=== PATIENT | male | born 1995 | race Caucasian/White ===

== ENCOUNTER 2016-10-29 06:52 | Emergency (ER) | payer BC, OTHER ==
[~2016-10-29] VITALS: Ht 167.6 cm; Wt 56.8 kg
[2016-10-29] MEDS ORDERED: PENT500C PO (07:07)
--- NOTE | 2016-10-29 08:24 | REP ---
CT abdomen and pelvis without IV or oral contrast: Renal stone protocol. History: Dysuria, hematuria, right flank pain. The patient reports a history of ulcerative colitis. Prior appendectomy. Comparison CT study December 23, 2008. CT findings: Preliminary digital shading painter radiograph shows an unremarkable bowel gas pattern. The lung bases are clear. There is no evidence of pleural effusion or upper abdominal ascites. The liver and the spleen are normal in size and homogeneous in texture. The gallbladder is unremarkable. No pancreatic abnormality is seen. No adrenal lesion is observed on either side. No intrarenal calculus is seen. No hydronephrosis is noted. The right mid ureter is slightly prominent. Small and large bowel loops in the upper abdomen are unremarkable. There are surgical clips in the right lower quadrant post appendectomy. Prostate, seminal vesicles and urinary bladder are unremarkable. There is a 3 mm calcification in the right pelvis. This could conceivably be a right distal ureteral calculus. I am not able to trace the ureter due to general paucity of intra-abdominal and retroperitoneal fat and lack of hydronephrosis. No other abnormality. No abdominal wall defect is seen. No bony lesion is appreciated. Impression: Status post appendectomy clips right lower quadrant. Calcification in the right pelvis 3 mm in diameter could be in the distal ureter. No evidence of hydronephrosis however. Otherwise unremarkable CT abdomen and pelvis. Signed by Zhang Reese MD 10/29/2016 09:51 A
[2016-10-29] MEDS ORDERED: FLOM5CAP PO (08:40)
[2016-10-29] MEDS ORDERED: IBUP80TA PO (08:40)
[2016-10-29] MEDS ORDERED: TAMSULOSIN 0.4 MG CAP PO ONE (08:45)
[2016-10-29 08:48] VITALS: BP 115/67
== END 2016-10-29 08:49 | disposition home or self-care (01) ==
LOC: M ED 06:52
DX: N20.1 Calculus of ureter (principal); K51.90 Ulcerative colitis, unspecified, without complications; Z79.899 Other long term (current) drug therapy; F17.210 Nicotine dependence, cigarettes, uncomplicated